=== PATIENT | male | born 1970 | race Caucasian/White ===

== ENCOUNTER 2022-09-21 02:09 | Emergency (ER) | payer OTHER ==
[~2022-09-21] VITALS: Ht 180.3 cm; Wt 100.0 kg
[2022-09-21] MEDS ORDERED: LIDOCAINE 1% HCL (LOCAL ANESTH.) INJ 20ML MDV ONE (03:58)
[2022-09-21] MEDS ORDERED: OXYCODONE W/ ACETAMINOPHEN 5/325MG TABLET PO ONE (04:15)
[2022-09-21] MEDS ORDERED: LIDOCAINE 1% HCL (LOCAL ANESTH.) INJ 20ML MDV ID ONE (04:15)
[2022-09-21] MEDS ORDERED: ONDA-144 PO (06:31)
[2022-09-21] MEDS ORDERED: CEPH-322 PO (06:31)
[2022-09-21] MEDS ORDERED: PERCOT PO (06:31)
[2022-09-21 06:36] VITALS: BP 127/73
== END 2022-09-21 07:02 | disposition home or self-care (01) ==
LOC: ER 02:09 → EDBD 02:09 → ER 06:42
DX: S01.81XA Laceration without foreign body of other part of head, initial encounter (principal); I10 Essential (primary) hypertension; Z95.0 Presence of cardiac pacemaker; W18.09XA Striking against other object with subsequent fall, initial encounter; Y93.89 Activity, other specified; Y92.89 Other specified places as the place of occurrence of the external cause; Y99.8 Other external cause status
CPT/HCPCS: 12013; 70450; 70486; 71250; 72125; 74176; 99284; J2001

== ENCOUNTER 2023-01-01 09:37 | Emergency (ER) | payer OTHER ==
[~2023-01-01] VITALS: Ht 182.9 cm; Wt 96.1 kg
[~2023-01-01 09:37] MED LIST: CEPH250C PO; ONDA-144 PO; PERCOT PO
[2023-01-01] MEDS ORDERED: MORPHINE SULFATE 4 MG/ML SYR/VIAL IV ONE (10:45)
[2023-01-01] MEDS ORDERED: ONDANSETRON HCL 4 MG/2 ML VIAL IV ONE (12:00)
[2023-01-01 12:10] VITALS: BP 107/72; PULSE 58; RESP 18; O2SAT 92
[2023-01-01] MEDS ORDERED: OXYCODONE W/ ACETAMINOPHEN 5/325MG TABLET PO ONE (13:00)
== END 2023-01-01 14:35 | disposition left against medical advice (07) ==
LOC: ER 09:37
DX: S43.004A Unspecified dislocation of right shoulder joint, initial encounter (principal); I10 Essential (primary) hypertension; Z96.611 Presence of right artificial shoulder joint; W10.8XXA Fall (on) (from) other stairs and steps, initial encounter; Y93.89 Activity, other specified; Y92.89 Other specified places as the place of occurrence of the external cause; Y99.8 Other external cause status
CPT/HCPCS: 73030; 96374; 99283; J2270